=== PATIENT | female | born 1945 | race Caucasian/White ===

== ENCOUNTER 2019-01-03 05:41 | Inpatient (IN) | payer MEDICARE, BC ==
[2018-12-29 12:06] VITALS: BMI 26.5
[~2019-01-03] VITALS: Ht 167.6 cm; Wt 74.4 kg
[2019-01-03] VITALS (40 sets, daily range): BP systolic 90–142; BP diastolic 42–92; PULSE 73–99; RESP 12–24; Ht 167.6 cm; Wt 74.4 kg
[2019-01-03] MEDS ORDERED: HYDR25TA6 PO (06:07)
[2019-01-03] MEDS: LACTATED RINGER'S 1,000 ML IV SCH ×2 (06:50)
--- NOTE | 2019-01-03 06:58 | HPN ---
Date/Time of Note Date/Time of Note DATE: 01/03/19 TIME: 06:58 Interval H&P Admission Note Pt. seen H&P reviewed: No system changes JOE HART MD January 03, 2019 06:58
[2019-01-03] MEDS ORDERED: CEFAZOLIN 2 GM/50 ML (PMX) 50 ML IVPB ONE (07:00)
[2019-01-03] MEDS ORDERED: ROCURONIUM 50 MG INJ ONE (07:00)
--- NOTE | 2019-01-03 07:00 | PREAC ---
Date/Time of Note Date/Time of Note DATE: 01/03/19 TIME: 06:59 Anesthesia Eval and Record Evaluation Time Pre-Procedure Interview DATE: 01/03/19 TIME: 06:59 Age 73 Sex female NPO: 8 hrs Preoperative diagnosis severe L3 spinal stenosis s/p L4-5 Planned procedure decompression, removal screw, ,... Past Medical History Past Medical History: Includes Cardio: HTN Surgery & Anesthesia Issues No known issue Meds Anticoagulation: No Beta Baljinder within 24 hr: No Reason Beta Baljinder not given: Pt. not on B-Baljinder Reported Medications Hydrochlorothiazide* (Hydrochlorothiazide*) 25 Mg Tab, 25 MG PO DAILY, #30 TAB 01/03/19 Current Medications Cefazolin Sodium/ Dextrose 50 ml @ 100 mls/hr PRE-OP ONCE IVPB Last administered on 01/03/19at 06:49; Admin Dose 100 MLS/HR; Start 01/03/19 at 07:00; Stop 01/03/19 at 07:29 Lactated Ringer's 1,000 ml @ 25 mls/hr Q24H IV Last administered on 01/03/19at 06:50; Admin Dose 25 MLS/HR; Start 01/03/19 at 07:00 Lactated Ringer's 1,000 ml @ 25 mls/hr Q24H IV Last administered on 01/03/19at 06:50; Admin Dose 25 MLS/HR; Start 01/03/19 at 07:00 Meds reviewed: Yes Allergies Coded Allergies: No Known Allergy (Unverified , 01/03/19) Allergies Reviewed: Yes Labs/Studies Labs Reviewed: Reviewed by anesthesiologist Blood Bank Test 01/03/19 06:36 Blood Product Summary Counts test: N/A Studies: ECG (sr), CXR (mild cardiomegally) Pre-procedure Exam Last vitals Vital Signs Date Temp Pulse Resp B/P (MAP) Pulse Ox O2 O2 Flow FiO2 Time Delivery Rate 01/03/19 97.2 73 18 142/92 98 Room Air 06:08 (109) Airway: Adequate mouth opening Mallampati: Mallampati I Teeth: Normal Lung: Normal Heart: Normal ASA Physical Status ASA physical status: 2 Emergency: None Planned Anesthetic General/MAC: ETT Planned Pain Management Parenteral pain med Pre-operative Attestations Prior to commencing anesthesia and surgery, the patient was re-evaluated, there was verification of: *The patient's identity *The results of appropriate recent lab work and preoperative vital signs *The above evaluation not changing prior to induction *Anesthetic plan, risk benefits, alternative and complications discussed with patient/family; questions answered; patient/family understands, accepts and wishes to proceed. GUERO LICONA MD January 03, 2019 07:00
[2019-01-03] MEDS ORDERED: PROPOFOL 20 ML ONE (07:03)
[2019-01-03] MEDS ORDERED: MIDAZOLAM 1 MG/ML 2 ML INJ ONE (07:03)
[2019-01-03] MEDS ORDERED: SUCCINYLCHOLINE CHLORIDE 100 MG/5 ML SYG IV ONE (07:03)
[2019-01-03] MEDS ORDERED: METOCLOPRAMIDE 10 MG INJ ONE (07:04)
[2019-01-03] MEDS ORDERED: HYDROmorphONE 2 MG/ML SYG ONE (07:10)
[2019-01-03] MEDS ORDERED: THROMBIN 5000 UNIT VIAL ONE (07:18)
[2019-01-03] MEDS ORDERED: BUPIVACAINE 0.25% (MPF) 30 ML INJ ONE (07:18)
[2019-01-03] MEDS ORDERED: POLYMYXIN/BACITRACIN 1L IRRIG ONE (07:18)
[2019-01-03] MEDS ORDERED: GELATIN SIZE 100 SPONGE ONE (07:18)
[2019-01-03] MEDS ORDERED: hydrALAzine 20 MG INJ ONE (07:27)
[2019-01-03] MEDS ORDERED: ONDANSETRON 4 MG INJ ONE (07:28)
[2019-01-03] MEDS ORDERED: PHENYLephrine (100 MCG/ML) 10ML SYG ONE (08:36)
[2019-01-03] MEDS ORDERED: NALOXONE (0.4 MG/ML) INJ ONE (10:09)
[2019-01-03] MEDS ORDERED: HYDROmorphONE 1 MG/5 ML IV SYRINGE IV ONE (10:22)
--- NOTE | 2019-01-03 10:23 | SIPON ---
Date/Time of Note Date/Time of Note DATE: 01/03/19 TIME: 10:19 Operative Report Preoperative Diagnosis Severe spinal stenosis at L3 Retained painful hardware at L4-5 bilaterally Retained bone growth stimulator (MI) Postoperative Diagnosis Same Operation/Procedure Performed Central decompressive laminectomy at L3 Exploration of spinal fusion L4-5 Removal of painful hardware L4-5 bilaterally (pedicle screws and rods) Removal of MI bone growth stimulator Medial facetectomy and foraminotomy L3-4 bilaterally Revision of scar (12 cm) Lateral localizing lumbar radiograph Intraoperative nerve monitoring (2-3/4 hours) Surgeon see signature line [employer] assistant manager Any OSORIO Anesthesia: general Estimated blood loss: 100 - 150 ml's Transfusion Required none Specimen Hardware (pedicle screws rods and MI bone growth stimulator) Spinous process of L3 Grafts/Implants none Complications none JOE HART MD January 03, 2019 10:23
[2019-01-03] MEDS ORDERED: FENTAnyl 50 MCG/ML VIAL ONE (10:27)
[2019-01-03] MEDS ORDERED: MEPERIDINE 25 MG INJ IV PRN (10:30)
[2019-01-03] MEDS ORDERED: AL HYDROX/MG HYDROX/SIMETH 30 ML CUP PO PRN (10:30)
[2019-01-03] MEDS ORDERED: CEPASTAT LOZENGE MT PRN (10:30)
[2019-01-03] MEDS ORDERED: NALOXONE (0.4 MG/ML) INJ IV PRN (10:30)
[2019-01-03] MEDS ORDERED: HYDROmorphONE 1 MG/5 ML IV SYRINGE IV PRN ×3 (10:30)
[2019-01-03] MEDS ORDERED: HYDROmorphONE 0.2 MG/ML PCA IV SCH (10:30)
[2019-01-03] MEDS ORDERED: TRIMETHOBENZAMIDE 100 MG/ML VIAL IM PRN (10:30)
[2019-01-03] MEDS ORDERED: DIPHENHYDRAMINE 50 MG INJ IV PRN (10:30)
[2019-01-03] MEDS ORDERED: ONDANSETRON 4 MG INJ IV PRN ×2 (10:30)
[2019-01-03] MEDS ORDERED: DIPHENHYDRAMINE 50 MG CAP PO PRN (10:30)
[2019-01-03] MEDS ORDERED: FENTAnyl 50 MCG/ML VIAL IV PRN ×3 (10:30)
[2019-01-03] MEDS ORDERED: EPHEDrine 25 MG/5 ML SYG IV PRN (10:30)
[2019-01-03] MEDS ORDERED: NACL 0.9% 3 ML SYG IV SCH (10:30)
[2019-01-03] MEDS ORDERED: DIAZEPAM 5 MG TAB PO PRN (10:30)
[2019-01-03] MEDS ORDERED: PROCHLORPERAZINE 10 MG TAB PO PRN (10:30)
[2019-01-03] MEDS ORDERED: HYDROCODONE/APAP (5/325) TAB PO PRN ×2 (10:30)
[2019-01-03] MEDS ORDERED: DIAZEPAM 5 MG/ML SYG IM PRN (10:30)
[2019-01-03] MEDS ORDERED: ACETAMINOPHEN 325 MG TAB PO PRN (10:30)
[2019-01-03] MEDS ORDERED: BETHANECHOL 25 MG TAB PO PRN (10:30)
[2019-01-03] MEDS: CEFAZOLIN 1 GM/50 ML (PMX) 50 ML IVPB SCH ×3 (11:32→23:38)
[2019-01-03] MEDS: DEXTROSE 5%-0.45% NACL 1,000 ML IV SCH ×3 (13:51→23:43)
--- NOTE | 2019-01-03 14:01 | OPR ---
DATE OF OPERATION: 01/03/2019 PREOPERATIVE DIAGNOSES: 1. Severe spinal stenosis at L3. 2. Status post lumbar fusion at L4 to L5 with retained painful hardware. 3. Retained MI bone growth stimulator. POSTOPERATIVE DIAGNOSES: 1. Severe spinal stenosis at L3. 2. Status post lumbar fusion at L4 to L5 with retained painful hardware. 3. Retained MI bone growth stimulator. OPERATIVE PROCEDURES: 1. Central decompressive laminectomy at L3. 2. Exploration of spinal fusion at L4 to L5. 3. Excision of painful hardware (bilateral pedicle screws and rods at L4 to L5). 4. Excision of MI bone growth stimulator. 5. Medial facetectomy and foraminotomy of L3 to L4 bilaterally. 6. Revision of scar (12 cm). 7. Lateral localized lumbar radiograph. 8. Intraoperative nerve monitoring (3/4 hours) SURGEON: Harsha Aldrich MD ADULT DAY CARE WORKER: DEVON Kwong ANESTHESIA: General endotracheal. ANESTHESIOLOGIST: Preethi Page MD ESTIMATED BLOOD LOSS: 100 mL - none replaced. DRAINS: Two medium Hemovac drains employed. COMPLICATIONS: None. PERTINENT HISTORY AND PHYSICAL: This is a 73-year-old female with recurrent back and bilateral leg pain, right greater than left, which have been unrelieved by extensive conservative management. She has a pertinent prior history of having undergone a spinal fusion at L4 to L5 with pedicle screws and rods many years ago which have become painful. Treatment options were discussed with the patient, she elected to proceed with surgery. OPERATIVE FINDINGS AT SURGERY: Severe stenosis at L3 was confirmed. The baseline intraoperative nerve monitoring revealed a decrease in L3 potential on the right of 40% and the L4 potential on the right of 40%. These both returned to normal at the completion of the surgery. OPERATIVE PROCEDURE IN DETAILS: With the patient in supine position after satisfactory induction of general endotracheal anesthesia by Dr. Page, the patient was turned to the prone kneeling position over the Sp frame. All pressure points were carefully padded. Back was prepped and draped in usual sterile fashion. Athrombic pumps were applied to the legs below the knees to prevent venous stasis during and after procedure. An indwelling Tucker catheter was also placed preoperatively to facilitate bladder drainage during and after procedure. A 12 cm incision was then carried midline through the previous scar from L2 to the sacrum after skin was infiltrated with 0.25% Marcaine without epinephrine for postoperative analgesia. Superficial retractors were placed and hemostasis was secured with electrocautery. Throughout the procedure, copious amounts of antibacterial irrigating solution were used to periodically irrigate the wound. The fascia was incised in midline with a hot knife and a bilateral subperiosteal dissection was carried out at L3. Deep retractors were placed and deep hemostasis was secured with electrocautery. A single lateral radiograph was taken with a Parminder clamp placed in what was felt to be the spinous process of L3 and this was confirmed on the x-ray. The dissection was then carried laterally until the pedicle screws and rods were identified. They were cleared of overlying scar and soft tissue with a Collado elevator. The locking caps were removed and the rods were then removed as well. With the rods removed, all 4 pedicle screws were removed and sent to laboratory for analysis. The MI bone growth stimulator which long since became inactive after the battery in 1997, was identified and the soft tissues lateral to the spinous process of L2 on the right. It was removed, as much of the 2 electrode wires that could be retrieved. Most of the electrode wires were buried under solid bone and could not be retrieved. Attention was then turned to the spinous process of L3 where a central decompressive laminectomy was carried out using a Antonio right-angle bone rongeur, Leksell rongeur, Kerrison punches and curettes. Ligamentum flavum was excised with sharp dissection. The operating microscope was then moved into place. A medial facetectomy and foraminotomy was accomplished using small hand osteotome, mallet, Kerrison punches and curettes. The epidural hemostasis was secured with bipolar electrocautery on low setting. The anesthesiologist was then asked to perform a Valsalva maneuver at 40 mmHg and no spinal fluid was noted. The wound was then closed in layers over 2 medium Hemovac drains, one below the fascia, one above the fascia using #1 Vicryl Stratafix sutures in deep paralumbar musculature and deep fascia of back, 2-0 Stratafix sutures in subcutaneous tissue and 4-0 Vicryl subcuticular cosmetic closing suture on the skin. Dermabond and sterile compressive dressings were applied. The patient having tolerated procedure well, was then turned to the supine position onto her bed and extubated by Dr. Page. She was transported to the recovery room in satisfactory condition. At the conclusion of the procedure, sponge, instrument and needle counts were all correct. NEED FOR GENERAL LEDGER BOOKKEEPER: During this spinal surgical procedure, my gallery assistant was used to retract and protect the spinal nerves and dural sac. My gallery assistant also employed the suction catheters to evacuate blood from the surgical field to improve visualization of the neural structures. The gallery assistant was medically necessary to facilitate the completion of the surgery in a safe and expeditious manner. [facility] regulations, as well as hospital bylaws, preclude the use of non-licensed health care personnel such as operating room technicians, to perform these functions. Throughout the procedure, neural monitoring was carried out by [employer] including EMG, SSEP and MEP monitoring of the L3, L4, L5 and S1 nerve roots bilaterally along with spinal cord potentials. These were interpreted in real time by Dr. Henrique Rhodes. Dictated By: HARSHA ALDRICH MD TM/NTS Conf#: [id number] DID#: [id number] CC: JAYDEN BETANCOURT MD;*EndCC* MTDD
--- NOTE | 2019-01-03 17:39 | CONS ---
Assessment/Plan Assessment/Plan Problems: (1) Essential (primary) hypertension Status: Chronic Comment: Cont. HCTZ 25 mg daily and monitor BP and check K level. (2) Lumbar spinal stenosis Status: Resolved Comment: Per primary team (3) Status post lumbar spine operation Status: Acute Comment: Doing well POD#0. PT and pain management per primary team. Will follow and manage any medical issues should they arise. Consultation Date/Type/Reason Admit Date/Time January 03, 2019 at 05:41 Date of Consultation: January 03, 2019 Type of Consult Medicine Reason for Consultation Medical Management Requesting Provider: JOE HART MD Date/Time of Note DATE: 01/03/19 TIME: 17:33 Hx of Present Illness 73 y/o C F w/ h/o lumbar spine disease w/ prior fusion 20 years ago and recent diagnosis of HTN in [facility] [place] since her initial fusion. Notes that she would have the occasional pains in her back running down her R leg but these would usually resolve in a matter of days. However, starting 5 months ago these pains became more intense and failed to resolve. Sought ortho who confirmed stenosis at L3. Tried epidural but was ineffective. Decided to have lumbar lami w/ removal of hardware and bone growth stimulator at same time. Constitutional: no complaints, improved Eyes: no complaints ENT: no complaints Respiratory: no complaints Cardiovascular: no complaints Gastrointestinal: no complaints Genitourinary: no complaints Musculoskeletal: back pain Neurologic: no complaints Past Medical History Medical History: hypertension Home Meds Reported Medications Hydrochlorothiazide* (Hydrochlorothiazide*) 25 Mg Tab, 25 MG PO DAILY, #30 TAB 01/03/19 Medications Current Medications Lactated Ringer's 1,000 ml @ 25 mls/hr Q24H IV Last administered on 01/03/19at 06:50; Admin Dose 25 MLS/HR; Start 01/03/19 at 07:00 Lactated Ringer's 1,000 ml @ 25 mls/hr Q24H IV Last administered on 01/03/19at 06:50; Admin Dose 25 MLS/HR; Start 01/03/19 at 07:00 Dextrose/Sodium Chloride 1,000 ml @ 100 mls/hr Q10H IV Last administered on 01/03/19at 13:51; Admin Dose 100 MLS/HR; Start 01/03/19 at 10:15 Acetaminophen/ Hydrocodone Bitart ([place] (5/325)) 1 tab Q4H PRN PO .PAIN 1-5; Start 01/03/19 at 10:30; Status Hold Acetaminophen/ Hydrocodone Bitart ([place] (5/325)) 2 tab Q4H PRN PO .PAIN 6-10; Start 01/03/19 at 10:30; Status Hold Cefazolin Sodium 50 ml @ 100 mls/hr Q6 IVPB Last administered on 01/03/19at 11:32; Admin Dose 100 MLS/HR; Start 01/03/19 at 12:00; Stop 01/04/19 at 06:29 Zolpidem Tartrate (Ambien) 5 mg HS PRN PO .INSOMNIA; Start 01/03/19 at 10:30 Prochlorperazine (Compazine) 10 mg Q4H PRN PO NAUSEA/VOMITING; Start 01/03/19 at 10:30 Trimethobenzamide HCl (Tigan) 200 mg Q4H PRN IM NAUSEA/VOMITING; Start 01/03/19 at 10:30 Ondansetron HCl (Zofran Inj) 4 mg Q6H PRN IV NAUSEA/VOMITING; Start 01/03/19 at 10:30 Al Hydrox/Mg Hydrox/Simethicone (Mag-Al Plus) 15 ml Q4H PRN PO .CONSTIPATION; Start 01/03/19 at 10:30 Docusate Sodium (Colace) 100 mg BID PO ; Start 01/04/19 at 09:00 Acetaminophen (Tylenol Tab) 650 mg Q4H PRN PO TEMP GREATER THAN 101F OR CRUZ; Start 01/03/19 at 10:30 Ascorbic Acid (Vitamin C) 1,000 mg BID PO ; Start 01/04/19 at 09:00 Ferrous Sulfate (Ferrous Sulfate (Ec)) 325 mg TID PO ; Start 01/04/19 at 09:00 Ranitidine HCl (Zantac) 150 mg BID PO ; Start 01/03/19 at 21:00 Diazepam (Valium) 5 mg Q4H PRN PO .MUSCLE SPASM; Start 01/03/19 at 10:30 Diazepam (Valium) 5 mg Q4H PRN IM .MUSCLE SPASM; Start 01/03/19 at 10:30 Phenol (Cepastat Lozenge) 1 lozenge PRN PRN MT .SORE THROAT; Start 01/03/19 at 10:30 Bethanechol Chloride (Urecholine) 25 mg PRN PRN PO .UNABLE TO VOID; Start 01/03/19 at 10:30 Diphenhydramine HCl (Benadryl) 50 mg Q6H PRN PO .PRURITUS; Start 01/03/19 at 10:30 IV Flush (NS 3 ml) 3 ml PER PROTOCOL IV ; Start 01/03/19 at 10:30 Hydromorphone HCl (Dilaudid RETAIL SPECIALIST) Q4PCA IV Last administered on 01/03/19at 10:51; Admin Dose 6 MG; Start 01/03/19 at 10:30 Naloxone HCl (Narcan) 0.2 mg Q2M PRN IV RR 8 BREATHS/MIN OR LESS; Start 01/03/19 at 10:30 Hydromorphone HCl (Dilaudid) 0.2 mg PACU PRN IV MILD PAIN 1-3; Start 01/03/19 at 10:30; Stop 01/03/19 at 18:00 Hydromorphone HCl (Dilaudid) 0.4 mg PACU PRN IV MOD PAIN 4-6 Last administered on 01/03/19at 10:39; Admin Dose 1 MG; Start 01/03/19 at 10:30; Stop 01/03/19 at 18:00 Hydromorphone HCl (Dilaudid) 0.6 mg PACU PRN IV SEVERE PAIN 7-10; Start 01/03/19 at 10:30; Stop 01/03/19 at 18:00 Fentanyl (Sublimaze) 25 mcg PACU ORDER PRN IV MILD PAIN 1-3 Last administered on 01/03/19at 10:40; Admin Dose 100 MCG; Start 01/03/19 at 10:30; Stop 01/03/19 at 18:00 Fentanyl (Sublimaze) 50 mcg PACU ORDER PRN IV MOD PAIN 4-6; Start 01/03/19 at 10:30; Stop 01/03/19 at 18:00 Fentanyl (Sublimaze) 75 mcg PACU ORDER PRN IV SEVERE PAIN 7-10; Start 01/03/19 at 10:30; Stop 01/03/19 at 18:00 Ondansetron HCl (Zofran Inj) 4 mg PACU ORDER PRN IV NAUSEA/VOMITING; Start 01/03/19 at 10:30; Stop 01/03/19 at 18:00 Ephedrine Sulfate 5 mg PACU ORDER PRN IV BLOOD PRESSURE SUPPORT; Start 01/03/19 at 10:30; Stop 01/03/19 at 18:00 Meperidine HCl (Demerol) 25 mg PACU ORDER PRN IV .RIGORS; Start 01/03/19 at 10:30; Stop 01/03/19 at 18:00 Diphenhydramine HCl (Benadryl) 25 mg PACU ORDER PRN IV .PRURITUS; Start 01/03/19 at 10:30; Stop 01/03/19 at 18:00 Hydrochlorothiazide (Hydrochlorothiazide) 25 mg DAILY PO ; Start 01/04/19 at 09:00 Allergies: Coded Allergies: No Known Allergy (Unverified , 01/03/19) Past Surgical History Past Surgical Hx: other (lumbar fusion, BTL, partial hysterectomy w/ BSO, T&A) Family History Significant Family History: heart disease (A-fib in mother and sister, OR in father), cancer (lymphoma in sister and brother) Social History b. [facility], in [facility] since 1979, some college, owns own business working in [employer], , 3 children Alcohol Use: heavy (2 glasses wine per night) Smoking Status: Former smoker (adolesence) Drug Use: none Exam/Review of Systems Exam Vitals VS - Last 72 Hours, by Label Date Temp Pulse Resp B/P (MAP) Pulse Ox O2 O2 Flow FiO2 Time Delivery Rate 01/03/19 17 17:21 01/03/19 98.2 81 17 141/69 95 16:00 (93) 01/03/19 81 136/66 15:30 (89) 01/03/19 87 124/62 15:00 (82) 01/03/19 94 120/59 14:45 (79) 01/03/19 95 119/58 14:30 (78) 01/03/19 99 121/63 14:15 (82) 01/03/19 98.0 90 18 115/56 93 Room Air 14:00 (75) 01/03/19 88 16 104/52 97 Nasal 3.0 12:42 (69) Cannula 01/03/19 88 18 100/48 97 Nasal 3.0 12:37 (65) Cannula 01/03/19 92 18 100/45 97 Nasal 3.0 12:32 (63) Cannula 01/03/19 90 18 102/54 97 Nasal 3.0 12:27 (70) Cannula 01/03/19 90 16 98/48 (65) 97 Nasal 3.0 12:22 Cannula 01/03/19 90 18 92/50 (64) 98 Nasal 3.0 12:17 Cannula 01/03/19 88 18 97/45 (62) 97 Nasal 3.0 12:13 Cannula 01/03/19 90 14 90/45 (60) 97 Nasal 3.0 12:12 Cannula 01/03/19 84 14 90/43 (59) 97 Nasal 3.0 12:07 Cannula 01/03/19 84 12 94/42 (59) 97 Nasal 3.0 12:02 Cannula 01/03/19 84 13 98/45 (62) 98 Nasal 3.0 11:57 Cannula 01/03/19 84 14 98/46 (63) 98 Nasal 3.0 11:52 Cannula 01/03/19 92 14 93/46 (62) 99 Nasal 3.0 11:47 Cannula 01/03/19 86 13 93/48 (63) 98 Nasal 3.0 11:42 Cannula 01/03/19 86 14 95/46 (62) 99 Nasal 3.0 11:37 Cannula 01/03/19 84 14 94/49 (64) 98 Nasal 3.0 11:32 Cannula 01/03/19 84 13 97/52 (67) 98 Nasal 3.0 11:27 Cannula 01/03/19 84 12 97/43 (61) 99 Nasal 3.0 11:22 Cannula 01/03/19 84 12 99/48 (65) 99 Nasal 3.0 11:17 Cannula 01/03/19 82 15 96/52 (67) 99 Nasal 3.0 11:12 Cannula 01/03/19 82 15 103/52 99 Nasal 3.0 11:07 (69) Cannula 01/03/19 18 11:06 01/03/19 86 13 91/56 (68) 99 Nasal 3.0 11:02 Cannula 01/03/19 Nasal 3.0 10:59 Cannula 01/03/19 84 17 97/54 (68) 99 Nasal 3.0 10:57 Cannula 01/03/19 86 14 100/53 99 Nasal 3.0 10:52 (69) Cannula 01/03/19 88 14 99/54 (69) 92 Room Air 10:47 01/03/19 88 15 95/53 (67) 93 Room Air 10:42 01/03/19 90 24 94/57 (69) 95 Mask 8.0 10:37 01/03/19 90 17 95/53 (67) 95 Mask 8.0 10:32 01/03/19 90 16 96/52 (67) 96 Mask 8.0 10:27 01/03/19 92 21 96/55 (69) 95 Mask 8.0 10:22 01/03/19 99.0 20 93/60 (71) 95 Nasal 8.0 10:17 Cannula 01/03/19 98.2 10:16 01/03/19 97.2 73 18 142/92 98 Room Air 06:08 (109) Vital Signs Date Temp Pulse Resp B/P (MAP) Pulse Ox O2 O2 Flow FiO2 Time Delivery Rate 01/03/19 17 17:21 01/03/19 98.2 81 141/69 95 16:00 (93) 01/03/19 Room Air 14:00 01/03/19 3.0 12:42 Constitutional: alert, oriented, obese Psych: no complaints, nl mood/affect Eyes: nl conjunctiva, EOMI, nl lids, nl sclera, PERRL ENMT: nl external ears & nose, mucosa pink and moist Neck: supple, non-tender; No bruits, No masses, No thyromegaly Respiratory: clear to auscultation, normal air movement Cardiovascular: regular rate and rhythm, nl pulses; No edema, No murmurs/extra sounds, No rub Gastrointestinal: soft, nl liver, spleen, non-tender, bowel sounds; No mass, No rebound or guarding Musculoskeletal: nl extremities to inspection Extremities: normal pulses; No cyanosis, No clubbing, No edema Neurological: ARCHIVIST POLITICAL HISTORY II-XII intact, nl mental status, nl speech, nl strength Medications Medication Current Medications Lactated Ringer's 1,000 ml @ 25 mls/hr Q24H IV Last administered on 01/03/19at 06:50; Admin Dose 25 MLS/HR; Start 01/03/19 at 07:00 Lactated Ringer's 1,000 ml @ 25 mls/hr Q24H IV Last administered on 01/03/19at 06:50; Admin Dose 25 MLS/HR; Start 01/03/19 at 07:00 Dextrose/Sodium Chloride 1,000 ml @ 100 mls/hr Q10H IV Last administered on 01/03/19at 13:51; Admin Dose 100 MLS/HR; Start 01/03/19 at 10:15 Acetaminophen/ Hydrocodone Bitart ([place] (5/325)) 1 tab Q4H PRN PO .PAIN 1-5; Start 01/03/19 at 10:30; Status Hold Acetaminophen/ Hydrocodone Bitart ([place] (5/325)) 2 tab Q4H PRN PO .PAIN 6-10; Start 01/03/19 at 10:30; Status Hold Cefazolin Sodium 50 ml @ 100 mls/hr Q6 IVPB Last administered on 01/03/19at 11:32; Admin Dose 100 MLS/HR; Start 01/03/19 at 12:00; Stop 01/04/19 at 06:29 Zolpidem Tartrate (Ambien) 5 mg HS PRN PO .INSOMNIA; Start 01/03/19 at 10:30 Prochlorperazine (Compazine) 10 mg Q4H PRN PO NAUSEA/VOMITING; Start 01/03/19 at 10:30 Trimethobenzamide HCl (Tigan) 200 mg Q4H PRN IM NAUSEA/VOMITING; Start 01/03/19 at 10:30 Ondansetron HCl (Zofran Inj) 4 mg Q6H PRN IV NAUSEA/VOMITING; Start 01/03/19 at 10:30 Al Hydrox/Mg Hydrox/Simethicone (Mag-Al Plus) 15 ml Q4H PRN PO .CONSTIPATION; Start 01/03/19 at 10:30 Docusate Sodium (Colace) 100 mg BID PO ; Start 01/04/19 at 09:00 Acetaminophen (Tylenol Tab) 650 mg Q4H PRN PO TEMP GREATER THAN 101F OR CRUZ; Start 01/03/19 at 10:30 Ascorbic Acid (Vitamin C) 1,000 mg BID PO ; Start 01/04/19 at 09:00 Ferrous Sulfate (Ferrous Sulfate (Ec)) 325 mg TID PO ; Start 01/04/19 at 09:00 Ranitidine HCl (Zantac) 150 mg BID PO ; Start 01/03/19 at 21:00 Diazepam (Valium) 5 mg Q4H PRN PO .MUSCLE SPASM; Start 01/03/19 at 10:30 Diazepam (Valium) 5 mg Q4H PRN IM .MUSCLE SPASM; Start 01/03/19 at 10:30 Phenol (Cepastat Lozenge) 1 lozenge PRN PRN MT .SORE THROAT; Start 01/03/19 at 10:30 Bethanechol Chloride (Urecholine) 25 mg PRN PRN PO .UNABLE TO VOID; Start 01/03/19 at 10:30 Diphenhydramine HCl (Benadryl) 50 mg Q6H PRN PO .PRURITUS; Start 01/03/19 at 10:30 IV Flush (NS 3 ml) 3 ml PER PROTOCOL IV ; Start 01/03/19 at 10:30 Hydromorphone HCl (Dilaudid RETAIL SPECIALIST) Q4PCA IV Last administered on 01/03/19at 10:51; Admin Dose 6 MG; Start 01/03/19 at 10:30 Naloxone HCl (Narcan) 0.2 mg Q2M PRN IV RR 8 BREATHS/MIN OR LESS; Start 01/03/19 at 10:30 Hydromorphone HCl (Dilaudid) 0.2 mg PACU PRN IV MILD PAIN 1-3; Start 01/03/19 at 10:30; Stop 01/03/19 at 18:00 Hydromorphone HCl (Dilaudid) 0.4 mg PACU PRN IV MOD PAIN 4-6 Last administered on 01/03/19at 10:39; Admin Dose 1 MG; Start 01/03/19 at 10:30; Stop 01/03/19 at 18:00 Hydromorphone HCl (Dilaudid) 0.6 mg PACU PRN IV SEVERE PAIN 7-10; Start 01/03/19 at 10:30; Stop 01/03/19 at 18:00 Fentanyl (Sublimaze) 25 mcg PACU ORDER PRN IV MILD PAIN 1-3 Last administered on 01/03/19at 10:40; Admin Dose 100 MCG; Start 01/03/19 at 10:30; Stop 01/03/19 at 18:00 Fentanyl (Sublimaze) 50 mcg PACU ORDER PRN IV MOD PAIN 4-6; Start 01/03/19 at 10:30; Stop 01/03/19 at 18:00 Fentanyl (Sublimaze) 75 mcg PACU ORDER PRN IV SEVERE PAIN 7-10; Start 01/03/19 at 10:30; Stop 01/03/19 at 18:00 Ondansetron HCl (Zofran Inj) 4 mg PACU ORDER PRN IV NAUSEA/VOMITING; Start 01/03/19 at 10:30; Stop 01/03/19 at 18:00 Ephedrine Sulfate 5 mg PACU ORDER PRN IV BLOOD PRESSURE SUPPORT; Start 01/03/19 at 10:30; Stop 01/03/19 at 18:00 Meperidine HCl (Demerol) 25 mg PACU ORDER PRN IV .RIGORS; Start 01/03/19 at 10:30; Stop 01/03/19 at 18:00 Diphenhydramine HCl (Benadryl) 25 mg PACU ORDER PRN IV .PRURITUS; Start 01/03/19 at 10:30; Stop 01/03/19 at 18:00 Hydrochlorothiazide (Hydrochlorothiazide) 25 mg DAILY PO ; Start 01/04/19 at 09:00 JAYDEN BETANCOURT MD January 03, 2019 17:39
[2019-01-03] MEDS: RANITIDINE 150 MG TAB PO SCH (20:38)
[2019-01-03] MEDS: ZOLPIDEM 5 MG TAB PO PRN ×2 (22:31→23:38)
[2019-01-04 00:06] VITALS: BP 119/58; PULSE 67; RESP 16
[2019-01-04 02:20] VITALS: BP 130/71; PULSE 86; RESP 18
[2019-01-04] MEDS: CEFAZOLIN 1 GM/50 ML (PMX) 50 ML IVPB SCH (06:07)
[2019-01-04] MEDS: LACTATED RINGER'S 1,000 ML IV SCH ×2 (07:00)
--- NOTE | 2019-01-04 07:10 | PN ---
Date/Time of Note Date/Time of Note DATE: 01/04/19 TIME: 07:09 Assessment/Plan Lines/Catheters IV Catheter Type (from Nrsg): Peripheral IV Tucker in Place (from Nrsg): Yes Subjective 24 Hr Interval Summary The patient is postop day #1 following a decompressive laminectomy at L3, and removal of painful hardware at L4-5 bilaterally. She is afebrile. Neurovascula r structures are intact distally. A.m. lab work is unremarkable with exception of a mild hypokalemia (3.2). Her Hemovac drainage since last night was 75 cc and will be left in place. She has a Tucker catheter in place which will be discontinued. We will taper her analgesics, and she will be mobilized as tolerated by physical therapy. I will defer to Dr. Gallardo regarding potassium replacement. Exam/Review of Systems Vital Signs Vitals Vital Signs Date Temp Pulse Resp B/P (MAP) Pulse Ox O2 O2 Flow FiO2 Time Delivery Rate 01/04/19 18 05:00 01/04/19 () 02:20 01/03/19 Room Air 14:00 01/03/19 3.0 12:42 Intake and Output 01/03/19 01/03/19 01/04/19 1515:00 23:00 07:00 IntakeIntake Total 2500 ml 450 ml 1150 ml OutputOutput Total 570 ml 100 ml 2675 ml BalanceBalance 1930 ml 350 ml -1525 ml Results Result Diagram: 01/04/19 0439 01/04/19 0439 JOE HART MD January 04, 2019 07:10
[2019-01-04 07:21] VITALS: BP 127/66; PULSE 83; RESP 18
[2019-01-04] MEDS ORDERED: BETHANECHOL 25 MG TAB PO PRN (08:00)
[2019-01-04] MEDS: FERROUS SULFATE (EC) 325 MG TAB PO SCH ×2 (08:35→12:57)
[2019-01-04] MEDS: RANITIDINE 150 MG TAB PO SCH (08:35)
[2019-01-04] MEDS ORDERED: DOCUSATE SODIUM 100 MG CAP PO SCH (09:00)
[2019-01-04] MEDS ORDERED: HYDROCHLOROTHIAZIDE 25 MG TAB PO SCH (09:00)
[2019-01-04] MEDS ORDERED: ASCORBIC ACID 500 MG TAB PO SCH (09:00)
--- NOTE | 2019-01-04 09:17 | PAC ---
Date/Time of Note Date/Time of Note DATE: 01/04/19 TIME: 09:16 Post-Anesthesia Notes Post-Anesthesia Note Last documented vital signs Vital Signs Date Temp Pulse Resp B/P (MAP) Pulse Ox O2 O2 Flow FiO2 Time Delivery Rate 01/04/19 98.8 83 18 127/66 100 07:21 (86) 01/03/19 Room Air 14:00 01/03/19 3.0 12:42 Activity: WNL Respiratory function: WNL Cardiovascular function: WNL Mental status: Baseline Pain reasonably controlled: Yes Hydration appropriate: Yes Nausea/Vomiting absent: No GUERO LICONA MD January 04, 2019 09:16
[2019-01-04] MEDS ORDERED: POTASSIUM CHLORIDE (SR) 20 MEQ TAB PO SCH (09:30)
[2019-01-04 13:28] VITALS: BP 112/55; PULSE 69; RESP 18
--- NOTE | 2019-01-04 17:17 | CONS ---
Assessment/Plan Assessment/Plan Problems: (1) Essential (primary) hypertension Status: Chronic Comment: BP well-controlled on HCTZ. K mildly low. Add Klor-con 40 mEq daily. (2) Lumbar spinal stenosis Status: Resolved Comment: Per primary team (3) Status post lumbar spine operation Status: Acute Comment: Doing well POD#1. Has not had drain removed yet. O/w pain controlled and ambulating w/ PT. Ready for d/c when primary team ready. Consultation Date/Type/Reason Admit Date/Time January 03, 2019 at 05:41 Initial Consult Date 01/03/19 Type of Consult Medicine Reason for Consultation Medical Management Requesting Provider: JOE HART MD Date/Time of Note DATE: 01/04/19 TIME: 17:15 24 HR Interval Summary Constitutional: no complaints, improved (ambulating) Detailed Summary Respiratory: no complaints Cardiovascular: no complaints Gastrointestinal: no complaints Genitourinary: no complaints Musculoskeletal: back pain (burning pain at site of drain) Neurologic: no complaints Exam/Review of Systems Exam Vitals VS - Last 72 Hours, by Label Date Temp Pulse Resp B/P (MAP) Pulse Ox O2 O2 Flow FiO2 Time Delivery Rate 01/04/19 98.8 69 18 112/55 94 13:28 (74) 01/04/19 98.8 83 18 127/66 100 07:21 (86) 01/04/19 18 05:00 01/04/19 () 02:20 01/04/19 18 01:00 01/04/19 98.2 67 16 119/58 97 00:06 (78) 01/03/19 18 21:00 01/03/19 98.3 80 20 136/65 97 19:35 (88) 01/03/19 17 17:21 01/03/19 98.2 81 17 141/69 95 16:00 (93) 01/03/19 81 136/66 15:30 (89) 01/03/19 87 124/62 15:00 (82) 01/03/19 94 120/59 14:45 (79) 01/03/19 95 119/58 14:30 (78) 01/03/19 99 121/63 14:15 (82) 01/03/19 98.0 90 18 115/56 93 Room Air 14:00 (75) 01/03/19 88 16 104/52 97 Nasal 3.0 12:42 (69) Cannula 01/03/19 88 18 100/48 97 Nasal 3.0 12:37 (65) Cannula 01/03/19 92 18 100/45 97 Nasal 3.0 12:32 (63) Cannula 01/03/19 90 18 102/54 97 Nasal 3.0 12:27 (70) Cannula 01/03/19 90 16 98/48 (65) 97 Nasal 3.0 12:22 Cannula 01/03/19 90 18 92/50 (64) 98 Nasal 3.0 12:17 Cannula 01/03/19 88 18 97/45 (62) 97 Nasal 3.0 12:13 Cannula 01/03/19 90 14 90/45 (60) 97 Nasal 3.0 12:12 Cannula 01/03/19 84 14 90/43 (59) 97 Nasal 3.0 12:07 Cannula 01/03/19 84 12 94/42 (59) 97 Nasal 3.0 12:02 Cannula 01/03/19 84 13 98/45 (62) 98 Nasal 3.0 11:57 Cannula 01/03/19 84 14 98/46 (63) 98 Nasal 3.0 11:52 Cannula 01/03/19 92 14 93/46 (62) 99 Nasal 3.0 11:47 Cannula 01/03/19 86 13 93/48 (63) 98 Nasal 3.0 11:42 Cannula 01/03/19 86 14 95/46 (62) 99 Nasal 3.0 11:37 Cannula 01/03/19 84 14 94/49 (64) 98 Nasal 3.0 11:32 Cannula 01/03/19 84 13 97/52 (67) 98 Nasal 3.0 11:27 Cannula 01/03/19 84 12 97/43 (61) 99 Nasal 3.0 11:22 Cannula 01/03/19 84 12 99/48 (65) 99 Nasal 3.0 11:17 Cannula 01/03/19 82 15 96/52 (67) 99 Nasal 3.0 11:12 Cannula 01/03/19 82 15 103/52 99 Nasal 3.0 11:07 (69) Cannula 01/03/19 18 11:06 01/03/19 86 13 91/56 (68) 99 Nasal 3.0 11:02 Cannula 01/03/19 Nasal 3.0 10:59 Cannula 01/03/19 84 17 97/54 (68) 99 Nasal 3.0 10:57 Cannula 01/03/19 86 14 100/53 99 Nasal 3.0 10:52 (69) Cannula 01/03/19 88 14 99/54 (69) 92 Room Air 10:47 01/03/19 88 15 95/53 (67) 93 Room Air 10:42 01/03/19 90 24 94/57 (69) 95 Mask 8.0 10:37 01/03/19 90 17 95/53 (67) 95 Mask 8.0 10:32 01/03/19 90 16 96/52 (67) 96 Mask 8.0 10:27 01/03/19 92 21 96/55 (69) 95 Mask 8.0 10:22 01/03/19 99.0 20 93/60 (71) 95 Nasal 8.0 10:17 Cannula 01/03/19 98.2 10:16 01/03/19 97.2 73 18 142/92 98 Room Air 06:08 (109) Vital Signs Date Temp Pulse Resp B/P (MAP) Pulse Ox O2 O2 Flow FiO2 Time Delivery Rate 01/04/19 98.8 69 18 112/55 94 13:28 (74) 01/03/19 Room Air 14:00 01/03/19 3.0 12:42 Intake and Output 01/03/19 01/03/19 01/04/19 1515:00 23:00 07:00 IntakeIntake Total 2500 ml 450 ml 1150 ml OutputOutput Total 570 ml 100 ml 2675 ml BalanceBalance 1930 ml 350 ml -1525 ml Constitutional: alert, oriented, obese Psych: no complaints, nl mood/affect Respiratory: clear to auscultation, normal air movement Cardiovascular: regular rate and rhythm, nl pulses; No edema, No murmurs/extra sounds, No rub Gastrointestinal: soft, nl liver, spleen, non-tender, bowel sounds; No mass, No rebound or guarding Musculoskeletal: nl extremities to inspection Extremities: normal pulses; No cyanosis, No clubbing, No edema Neurological: [employer] II-XII intact, nl mental status, nl speech, nl strength Results Result Diagram: 01/04/19 0439 01/04/19 0439 Results 24hrs Laboratory Tests Test 01/04/19 04:39 01/04/19 08:30 Hemoglobin 11.1 L Hematocrit 32.2 L Sodium Level 136 Potassium Level 3.2 L Chloride Level 99 Carbon Dioxide Level 33 H Anion Gap 4 L Blood Urea Nitrogen 5 L Creatinine 0.52 Est Glomerular Filtrat Rate mL/min Glucose Level 126 Calcium Level 8.3 L Urine Color YELLOW Urine Clarity CLEAR Urine pH 6.0 Urine Specific [place] 1.013 Urine Ketones NEGATIVE Urine Nitrite NEGATIVE Urine Bilirubin NEGATIVE Urine Urobilinogen NEGATIVE Urine Leukocyte Esterase NEGATIVE Urine Microscopic RBC 11 H Urine Microscopic WBC 2 Urine Mucus FEW A Urine Hemoglobin 1+ H Urine Glucose NEGATIVE Urine Total Protein NEGATIVE Medications Medication Current Medications Acetaminophen/ Hydrocodone Bitart ([place] (5/325)) 1 tab Q4H PRN PO .PAIN 1-5 Last administered on 01/04/19at 12:55; Admin Dose 1 TAB; Start 01/03/19 at 10:30 Acetaminophen/ Hydrocodone Bitart ([place] (5/325)) 2 tab Q4H PRN PO .PAIN 6-10; Start 01/03/19 at 10:30 Zolpidem Tartrate (Ambien) 5 mg HS PRN PO .INSOMNIA Last administered on 01/03/19at 23:38; Admin Dose 5 MG; Start 01/03/19 at 10:30 Prochlorperazine (Compazine) 10 mg Q4H PRN PO NAUSEA/VOMITING; Start 01/03/19 at 10:30 Trimethobenzamide HCl (Tigan) 200 mg Q4H PRN IM NAUSEA/VOMITING; Start 01/03/19 at 10:30 Ondansetron HCl (Zofran Inj) 4 mg Q6H PRN IV NAUSEA/VOMITING Last administered on 01/04/19at 11:53; Admin Dose 4 MG; Start 01/03/19 at 10:30 Al Hydrox/Mg Hydrox/Simethicone (Mag-Al Plus) 15 ml Q4H PRN PO .CONSTIPATION; Start 01/03/19 at 10:30 Docusate Sodium (Colace) 100 mg BID PO Last administered on 01/04/19at 08:35; Admin Dose 100 MG; Start 01/04/19 at 09:00 Acetaminophen (Tylenol Tab) 650 mg Q4H PRN PO TEMP GREATER THAN 101F OR CRUZ; Start 01/03/19 at 10:30 Ascorbic Acid (Vitamin C) 1,000 mg BID PO Last administered on 01/04/19 08:35; Admin Dose 1,000 MG; Start 01/04/19 at 09:00 Ferrous Sulfate (Ferrous Sulfate (Ec)) 325 mg TID PO Last administered on 01/04/19 08:35; Admin Dose 325 MG; Start 01/04/19 at 09:00 Ranitidine HCl (Zantac) 150 mg BID PO Last administered on 01/04/19 08:35; Admin Dose 150 MG; Start 01/03/19 at 21:00 Diazepam (Valium) 5 mg Q4H PRN PO .MUSCLE SPASM; Start 01/03/19 at 10:30 Diazepam (Valium) 5 mg Q4H PRN IM .MUSCLE SPASM; Start 01/03/19 at 10:30 Phenol (Cepastat Lozenge) 1 lozenge PRN PRN MT .SORE THROAT; Start 01/03/19 at 10:30 Bethanechol Chloride (Urecholine) 25 mg PRN PRN PO .UNABLE TO VOID Last administered on 01/04/19 14:13; Admin Dose 25 MG; Start 01/03/19 at 10:30 Diphenhydramine HCl (Benadryl) 50 mg Q6H PRN PO .PRURITUS; Start 01/03/19 at 10:30 IV Flush (NS 3 ml) 3 ml PER PROTOCOL IV ; Start 01/03/19 at 10:30 Naloxone HCl (Narcan) 0.2 mg Q2M PRN IV RR 8 BREATHS/MIN OR LESS; Start 01/03/19 at 10:30 Hydrochlorothiazide (Hydrochlorothiazide) 25 mg DAILY PO Last administered on 01/04/19 08:36; Admin Dose 25 MG; Start 01/04/19 at 09:00 Potassium Chloride (Klor-Con 20) 40 meq DAILY PO Last administered on 01/04/19 11:53; Admin Dose 40 MEQ; Start 01/04/19 at 09:30 JAYDEN BETANCOURT MD January 04, 2019 17:17
== END 2019-01-04 19:20 | disposition home or self-care (01) | DRG 520 ==
LOC: REC 05:41 → MS1 12:22
PROVIDERS: ADMIT Orthopaedic Surgery; ATTEND Orthopaedic Surgery
PROC: 0QP004Z Removal of Internal Fixation Device from Lumbar Vertebra, Open Approach (ICD-10-PCS; 2019-01-03)
PROC: 0QP Lower Bones, Removal (ICD-10-PCS; 2019-01-03)
PROC: 00NY0ZZ Release Lumbar Spinal Cord, Open Approach (ICD-10-PCS; principal; 2019-01-03 07:00)
DX: T84.84XA Pain due to internal orthopedic prosthetic devices, implants and grafts, initial encounter (principal); M48.061 Spinal stenosis, lumbar region without neurogenic claudication; Z98.1 Arthrodesis status; I10 Essential (primary) hypertension
CPT/HCPCS: 72020; 80048; 81001; 85014; 85018; 85651; 86850; 86900; 86901; 86920; 87086; 88300; 88304; 88311; 97116; 97161; 97530; J0360; J0690; J1170; J1200; J2175; J2250; J2310; J2370; J2405; J2765; J3010; J7042; J7120